=== PATIENT | male | born 1985 | race Caucasian/White ===

== ENCOUNTER 2022-08-16 10:06 | Outpatient (OUT) | payer BC, SELFPAY ==
--- NOTE | 2022-08-16 10:32 | CT_ITS ---
The [address] [address] Patient Name: LUIS HASTINGS MRN: [id number] date: 1985 Sex: M Assigned Patient Location: US Current Patient Location: US Accession/Order Number: [id number] Exam Date: 08/16/2022 11:20 Report Date: 08/16/2022 14:14 At the request of: GREG HEALY Procedure: CT soft tissue neck w con EXAM: CT soft tissue neck w con HISTORY: Mass of parotid gland K11.8 COMPARISON: Ultrasound same day TECHNIQUE: 3 mm axial images were obtained the neck during 99 mL Omnipaque 300 injection. Multiplanar reconstructions created. Automated exposure control utilized FINDINGS: The visualized brain and orbits are unremarkable. 3 x 3 x 3.5 cm heterogeneous mass in the right parotid gland. Mostly superficial with some extension deep to the facial vein. Few other tiny parotid nodules. The submandibular glands appear normal. There is no mucosal abnormality. The thyroid gland appears normal. Scattered, small internal jugular chain lymph nodes Moderate spondylitic changes of the cervical spine Bovine aortic arch. No significant great vessel or carotid stenosis2 IMPRESSION: 3.5 cm heterogeneous right parotid mass. This likely reflects pleomorphic adenoma or other parotid neoplasm Scattered subcentimeter internal jugular chain lymph nodes Electronically authenticated by: SHELBY JENKINS Date: 08/16/2022 14:14
--- NOTE | 2022-08-16 10:32 | US_ITS ---
[address] [address] Patient Name: LUIS HASTINGS MRN: [id number] date: 1985 Sex: M Assigned Patient Location: US Current Patient Location: US Accession/Order Number: [id number] Exam Date: 08/16/2022 11:00 Report Date: 08/16/2022 14:17 At the request of: GREG HEALY Procedure: US soft tissue head and neck EXAM: US soft tissue head and neck HISTORY: Right parotid mass COMPARISON: CT same day TECHNIQUE: Transverse and longitudinal images right neck FINDINGS: Heterogeneous 2.8 x 3.0 x 2.6 cm mass. Type: It has lobulated margins. Few internal echoes. No significant vascularity. Few additional 3 to 4 mm parotid nodules IMPRESSION: Heterogeneous right parotid mass. Few other tiny parotid nodules. The dominant mass could reflect pleomorphic adenoma or other parotid neoplasm Electronically authenticated by: SHELBY JENKINS Date: 08/16/2022 14:17
== END 2022-08-16 10:07 ==
PROVIDERS: PCP Family Medicine; Visit Provider Otolaryngology
DX: K11.8 Other diseases of salivary glands (principal)
CPT/HCPCS: 70491; 76536; Q9967

== ENCOUNTER 2022-08-23 09:08 | Day surgery (SDC) | payer BC, SELFPAY ==
--- NOTE | 2022-08-23 09:25 | US_ITS ---
[address] [address] Patient Name: LUIS HASTINGS MRN: [id number] date: 1985 Sex: M Assigned Patient Location: US Current Patient Location: US Accession/Order Number: [id number] Exam Date: 08/23/2022 10:32 Report Date: 08/23/2022 12:03 At the request of: GREG BAEZ Procedure: US biopsy FNA EXAMINATION: US biopsy FNA HISTORY: 2.5cm Right Parotid Mass COMPARISON: No relevant comparison available. TECHNIQUE: After obtaining informed consent, an ultrasound-guided biopsy was performed in the usual sterile manner. FINDINGS: IMAGIN.1 cm right parotid mass BIOPSY NEEDLE: 25-gauge 2 inch SPECIMEN TYPE, #, LOCATION: 3 fine-needle aspirates] mass MEDICATION: 3 cc 1% buffered lidocaine COMPLICATIONS: None. LABORATORY: OTHER: Negative. IMPRESSION: Uneventful ultrasound guided biopsy. The patient was instructed to obtain follow up care and biopsy results from Dr. Baez. Electronically authenticated by: NITHYA TILLEY Date: 08/23/2022 12:03
[2022-08-23 10:45] VITALS: BP 157/103; PULSE 105; O2SAT 97
[2022-08-23 13:38] VITALS: BMI 30.1
[2022-08-23] MEDS: LIDOCAINE HCL 10 ML, SODIUM BICARBONATE 1 MEQ INJ (13:47)
== END 2022-08-23 14:58 | disposition home or self-care (01) ==
LOC: US 09:09
PROVIDERS: Radiology Diagnostic Radiology; PCP Family Medicine; Visit Provider Otolaryngology
DX: D11.0 Benign neoplasm of parotid gland (principal)
CPT/HCPCS: 10005; 36415; 76942; 88173